=== PATIENT | female | born 1960 | race Hispanic/Latino ===

== ENCOUNTER 2023-01-19 19:59 | Emergency (ER) | payer OTHER ==
[~2023-01-19] VITALS: Ht 154.9 cm; Wt 71.2 kg
[2023-01-19] MEDS ORDERED: ASPIRIN 325 MG TAB PO ONE (20:30)
[2023-01-19] MEDS ORDERED: ACETAMINOPHEN 325 MG TAB PO ONE (20:30)
[2023-01-19 20:33] LABS: BASOPHILS % 0.4 % (0.0-1.0); EOSINOPHILS # (AUTO) 0.2 (0.0-0.4); HEMATOCRIT 37.3 % (34.2-44.1); HEMOGLOBIN 12.3 g/dL (12.0-16.0); LYMPHOCYTES % 38.5 % (18.0-39.1); MEAN CORPUSCULAR HEMOGLOBIN 30.4 pg (28-32); MEAN CORPUSCULAR VOLUME 92.3 fL (81-99); MONOCYTES # (AUTO) 0.4 (0.2-0.8); MONOCYTES % 6.7 % (4.4-11.3); NEUTROPHILS # (AUTO) 2.6 (2.1-6.9); NEUTROPHILS % 50.2 % (38.7-80.0); PLATELET COUNT 161 x10e3/uL (140-360); RED BLOOD COUNT 4.04 x10e6/uL (3.6-5.1); RED CELL DISTRIBUTION WIDTH 12.8 % (11.7-14.4)
[2023-01-19 20:38] LABS: INR 0.98; PARTIAL THROMBOPLASTIN TIME 34.3 seconds (23.8-35.5); PROTHROMBIN TIME 13.5 seconds (11.9-14.5)
[2023-01-19 20:45] LABS: CLARITY,URINE CLEAR (CLEAR); COLOR,URINE YELLOW (YELLOW); KETONES,URINE NEGATIVE (NEGATIVE); LEUKOCYTE ESTERASE ,URINE NEGATIVE (NEGATIVE); NITRITE,URINE NEGATIVE (NEGATIVE); PROTEIN,URINE DIPSTICK NEGATIVE (NEGATIVE)
[2023-01-19 20:45] LABS: ALBUMIN 3.9 g/dL (3.5-5.0); ALBUMIN/GLOBULIN RATIO 1.1 (0.8-2.0); ANION GAP 9.9 mmol/L (8-16); CALCIUM 8.6 mg/dL (8.4-10.2); CREATININE, SERUM 0.89 mg/dL (0.57-1.11); POTASSIUM 3.9 mmol/L (3.5-5.1)
[2023-01-19 20:46] LABS: URINE UROBILINOGEN 0.2 mg/dL (0.2 - 1)
[2023-01-19 21:06] LABS: BACTERIA,URINE FEW /HPF; EPITHELIAL CELLS,URINE FEW /LPF; WBC,URINE (MAN) 0-5 /HPF (0-5)
[2023-01-19] MEDS ORDERED: FLUCONAZOLE100 MG PO (21:46)
[2023-01-19] MEDS ORDERED: BENZONATATE100 MG PO (22:45)
[2023-01-19] MEDS ORDERED: FLONASE ALLERG9.9 ML INH (22:45)
[2023-01-19] MEDS ORDERED: MUCINEX DM ER1 EACH PO (22:45)
[2023-01-19] MEDS ORDERED: IBUPROFEN600 MG PO (22:45)
[2023-01-19 22:55] VITALS: BP 150/90; PULSE 61; RESP 20; TEMP 98.6; O2SAT 99
== END 2023-01-19 23:01 | disposition home or self-care (01) ==
LOC: ER 20:05
DX: R05.9 Cough, unspecified (principal); J40 Bronchitis, not specified as acute or chronic; J02.9 Acute pharyngitis, unspecified; B34.9 Viral infection, unspecified; R07.81 Pleurodynia; Z20.822 Contact with and (suspected) exposure to COVID-19
CPT/HCPCS: 36415; 71045; 80053; 81001; 83690; 84484; 85025; 85610; 85730; 93005; 99284; U0002

== ENCOUNTER 2023-01-31 11:23 | Inpatient (IN) | payer OTHER ==
[2023-01-31] VITALS (7 sets, daily range): BP systolic 122–143; BP diastolic 79–86; PULSE 63–88; RESP 16–22; TEMP 36.5–36.7; O2SAT 98–100
[~2023-01-31] VITALS: Ht 162.6 cm; Wt 70.3 kg
[~2023-01-31 11:23] MED LIST: BENZONATATE100 MG PO; FLONASE ALLERG9.9 ML INH; FLUCONAZOLE100 MG PO; IBUPROFEN600 MG PO; MUCINEX DM ER1 EACH PO
[2023-01-31 12:08] LABS: BASOPHILS % 0.6 % (0.0-1.0); EOSINOPHILS # (AUTO) 0.2 (0.0-0.4); EOSINOPHILS % 4.1 % (0.0-6.0); HEMATOCRIT 38.5 % (34.2-44.1); LYMPHOCYTES # (AUTO) 1.8 (1.0-3.2); LYMPHOCYTES % 37.1 % (18.0-39.1); MEAN CORPUSCULAR HEMOGLOBIN 30.8 pg (28-32); MEAN CORPUSCULAR HGB CONC 33.8 g/dL (31-35); MEAN CORPUSCULAR VOLUME 91.2 fL (81-99); MONOCYTES # (AUTO) 0.3 (0.2-0.8); MONOCYTES % 6.7 % (4.4-11.3); NEUTROPHILS # (AUTO) 2.5 (2.1-6.9); NEUTROPHILS % 51.3 % (38.7-80.0); PLATELET COUNT 179 x10e3/uL (140-360); RED BLOOD COUNT 4.22 x10e6/uL (3.6-5.1); RED CELL DISTRIBUTION WIDTH 12.7 % (11.7-14.4)
[2023-01-31 12:23] LABS: INR 1.04; PROTHROMBIN TIME 14.1 seconds (11.9-14.5)
[2023-01-31 12:24] LABS: PARTIAL THROMBOPLASTIN TIME 34.2 seconds (23.8-35.5)
[2023-01-31 12:35] LABS: ALANINE AMINOTRANSFERASE 15 IU/L (0-55); ALBUMIN 4.1 g/dL (3.5-5.0); ALBUMIN/GLOBULIN RATIO 1.1 (0.8-2.0); ALKALINE PHOSPHATASE 100 IU/L (40-150); ANION GAP 12.7 mmol/L (8-16); BLOOD UREA NITROGEN 12 mg/dL (7-26); BUN/CREATININE RATIO 13 (6-25); CALCIUM 8.8 mg/dL (8.4-10.2); CARBON DIOXIDE 21 mmol/L (22-29); CHLORIDE 114 mmol/L (98-107); CREATINE KINASE 60 IU/L (29-168); CREATININE, SERUM 0.95 mg/dL (0.57-1.11); GLUCOSE 90 mg/dL (74-118); POTASSIUM 3.7 mmol/L (3.5-5.1); SODIUM 144 mmol/L (136-145)
[2023-01-31] MEDS: SODIUM CHLORIDE 0.9% 1000ML 1,000 ML IV SCH ×2 (13:52→22:11)
[2023-01-31] MEDS: ONDANSETRON HCL INJ 2MG/ML 2ML 2 MG/ML VIAL IV PRN ×3 (14:08→22:20)
[2023-01-31] MEDS: ALBUTEROL/IPRATROPIUM 3 ML NEB NEB PRN (14:25)
[2023-01-31] MEDS ORDERED: ONDANSETRON HCL INJ 2MG/ML 2ML 2 MG/ML VIAL IV PRN (16:15)
[2023-01-31] MEDS: Morphine 2mg Syringe 2 MG/ML SYR IV PRN (16:18)
[2023-01-31 20:00] LABS: CREATINE KINASE 50 IU/L (29-168)
[2023-01-31] MEDS ORDERED: Morphine 4mg INJECTION 4 MG/ML INJ IV ONE (22:15)
[2023-01-31] MEDS: ACETAMINOPHEN 325 MG TAB PO PRN (22:20)
[2023-01-31] MEDS ORDERED: PREDNISONE20 MG PO (22:48)
[2023-01-31] MEDS ORDERED: IBUPROFEN200 MG PO (22:48)
[2023-01-31] MEDS ORDERED: TOPIRAMATE100 MG PO (22:48)
[2023-01-31] MEDS ORDERED: HYDROXYZINE HCL10 MG PO (22:48)
[2023-01-31] MEDS ORDERED: FAMOTIDINE20 MG PO (22:48)
[2023-01-31] MEDS ORDERED: TRAZODONE HCL100 MG PO (22:48)
[2023-01-31] MEDS ORDERED: NEURONTIN300 MG PO (22:48)
[2023-02-01] VITALS (11 sets, daily range): BP systolic 98–136; BP diastolic 64–75; PULSE 57–76; RESP 15–21; TEMP 97.5–98.3; O2SAT 97–100
[2023-02-01] MEDS: ALBUTEROL/IPRATROPIUM 3 ML NEB NEB PRN (05:02)
[2023-02-01] MEDS: SODIUM CHLORIDE 0.9% 1000ML 1,000 ML IV SCH ×2 (05:31→12:39)
[2023-02-01 07:35] LABS: ALBUMIN 3.1 g/dL (3.5-5.0); ALBUMIN/GLOBULIN RATIO 1.1 (0.8-2.0); ANION GAP 9.6 mmol/L (8-16); CALCIUM 7.6 mg/dL (8.4-10.2); CREATININE, SERUM 0.81 mg/dL (0.57-1.11); POTASSIUM 3.6 mmol/L (3.5-5.1)
[2023-02-01 07:44] LABS: BASOPHILS % 0.4 % (0.0-1.0); EOSINOPHILS # (AUTO) 0.2 (0.0-0.4); EOSINOPHILS % 3.6 % (0.0-6.0); HEMATOCRIT 34.4 % (34.2-44.1); HEMOGLOBIN 11.1 g/dL (12.0-16.0); LYMPHOCYTES # (AUTO) 2.3 (1.0-3.2); LYMPHOCYTES % 45.4 % (18.0-39.1); MEAN CORPUSCULAR HGB CONC 32.3 g/dL (31-35); MONOCYTES # (AUTO) 0.4 (0.2-0.8); MONOCYTES % 7.7 % (4.4-11.3); NEUTROPHILS # (AUTO) 2.1 (2.1-6.9); NEUTROPHILS % 42.5 % (38.7-80.0); PLATELET COUNT 143 x10e3/uL (140-360); RED CELL DISTRIBUTION WIDTH 12.8 % (11.7-14.4)
[2023-02-01 07:51] LABS: CREATINE KINASE 52 IU/L (29-168)
[2023-02-01] MEDS: Morphine 2mg Syringe 2 MG/ML SYR IV PRN ×2 (12:40→21:58)
[2023-02-01] MEDS: ONDANSETRON HCL INJ 2MG/ML 2ML 2 MG/ML VIAL IV PRN (14:21)
[2023-02-01 14:42] LABS: CREATINE KINASE 50 IU/L (29-168)
[2023-02-01] MEDS ORDERED: HYDRALAZINE HCL 20 MG/ML VIAL IV PRN (15:00)
[2023-02-01] MEDS: TOPIRAMATE 25 MG TAB PO SCH (17:44)
[2023-02-01] MEDS: GABAPENTIN 300 MG CAP PO SCH (17:44)
[2023-02-01] MEDS: ACETAMINOPHEN 325 MG TAB PO PRN (17:58)
[2023-02-01] MEDS ORDERED: FUROSEMIDE INJ 10 MG/ML 4 ML VIAL IV ONE (18:00)
[2023-02-01] MEDS ORDERED: IOPAMIDOL 370 MG/ML 100 ML INFUS..BTL INJ ONE (18:59)
[2023-02-01] MEDS: TRAZODONE HCL 50 MG TAB PO SCH (22:01)
[2023-02-02] VITALS (10 sets, daily range): BP systolic 126–145; BP diastolic 64–98; PULSE 62–92; RESP 16–20; TEMP 98.1–98.8; O2SAT 95–100
[2023-02-02 06:09] LABS: BASOPHILS % 0.4 % (0.0-1.0); EOSINOPHILS # (AUTO) 0.3 (0.0-0.4); EOSINOPHILS % 5.3 % (0.0-6.0); HEMATOCRIT 34.6 % (34.2-44.1); HEMOGLOBIN 11.2 g/dL (12.0-16.0); LYMPHOCYTES # (AUTO) 1.8 (1.0-3.2); MEAN CORPUSCULAR HEMOGLOBIN 30.4 pg (28-32); MEAN CORPUSCULAR HGB CONC 32.4 g/dL (31-35); MONOCYTES # (AUTO) 0.3 (0.2-0.8); NEUTROPHILS # (AUTO) 2.5 (2.1-6.9); NEUTROPHILS % 51.1 % (38.7-80.0); PLATELET COUNT 147 x10e3/uL (140-360); RED BLOOD COUNT 3.68 x10e6/uL (3.6-5.1); RED CELL DISTRIBUTION WIDTH 12.5 % (11.7-14.4)
[2023-02-02 06:35] LABS: CHOL/HDL RATIO 4.4 (3.0-3.6); MAGNESIUM 1.9 MG/DL (1.3-2.1); PHOSPHORUS 4.1 MG/DL (2.3-4.7)
[2023-02-02 06:37] LABS: ALBUMIN 3.3 g/dL (3.5-5.0); ALBUMIN/GLOBULIN RATIO 1.1 (0.8-2.0); ANION GAP 9.8 mmol/L (8-16); CALCIUM 8.3 mg/dL (8.4-10.2); CREATININE, SERUM 0.76 mg/dL (0.57-1.11); POTASSIUM 3.8 mmol/L (3.5-5.1)
[2023-02-02 06:45] LABS: THYROID STIMULATING HORMONE 3.878 uIU/mL (0.350-4.940)
[2023-02-02] MEDS: GABAPENTIN 300 MG CAP PO SCH ×2 (08:23→17:06)
[2023-02-02] MEDS: FAMOTIDINE 20 MG TAB PO SCH (08:23)
[2023-02-02] MEDS: Morphine 2mg Syringe 2 MG/ML SYR IV PRN ×2 (08:24→20:59)
[2023-02-02] MEDS: TOPIRAMATE 25 MG TAB PO SCH ×2 (08:24→17:07)
[2023-02-02] MEDS: BENZONATATE 100 MG CAP PO PRN (18:34)
[2023-02-02] MEDS: TRAZODONE HCL 50 MG TAB PO SCH (20:57)
[2023-02-03] VITALS (8 sets, daily range): BP systolic 110–135; BP diastolic 66–86; PULSE 68–85; RESP 16–18; TEMP 97.5–98.3; O2SAT 96–98
[2023-02-03] MEDS: FAMOTIDINE 20 MG TAB PO SCH (08:53)
[2023-02-03] MEDS: GABAPENTIN 300 MG CAP PO SCH ×2 (08:53→16:37)
[2023-02-03] MEDS: TOPIRAMATE 25 MG TAB PO SCH ×2 (08:53→16:37)
[2023-02-03] MEDS: Morphine 2mg Syringe 2 MG/ML SYR IV PRN (16:37)
[2023-02-03] MEDS: TRAZODONE HCL 50 MG TAB PO SCH (21:04)
[2023-02-03] MEDS ORDERED: GUAIFENESIN/DEXTROMETHORPHAN LIQD 5 ML UDC PO PRN (22:15)
[2023-02-04] VITALS (11 sets, daily range): BP systolic 92–121; BP diastolic 59–78; PULSE 66–81; RESP 16–22; TEMP 97.6–98.3; O2SAT 95–100
[2023-02-04] MEDS: Morphine 2mg Syringe 2 MG/ML SYR IV PRN ×2 (05:06→20:50)
[2023-02-04] MEDS: FAMOTIDINE 20 MG TAB PO SCH (08:42)
[2023-02-04] MEDS: GABAPENTIN 300 MG CAP PO SCH ×2 (08:42→17:19)
[2023-02-04] MEDS: TOPIRAMATE 25 MG TAB PO SCH ×2 (08:42→17:20)
[2023-02-04] MEDS ORDERED: METHYLPREDNISOLONE SOD SUCC 125 MG/2ML VIAL IV ONE ×2 (13:25→14:50)
[2023-02-04] MEDS: TRAZODONE HCL 50 MG TAB PO SCH (20:26)
[2023-02-04] MEDS: BENZONATATE 100 MG CAP PO PRN (20:50)
[2023-02-05] VITALS (10 sets, daily range): BP systolic 93–127; BP diastolic 62–95; PULSE 72–96; RESP 17–22; TEMP 97.6–97.9; O2SAT 96–100
[2023-02-05] MEDS: GABAPENTIN 300 MG CAP PO SCH ×2 (08:05→17:03)
[2023-02-05] MEDS: TOPIRAMATE 25 MG TAB PO SCH ×2 (08:05→17:03)
[2023-02-05] MEDS: FAMOTIDINE 20 MG TAB PO SCH (08:05)
[2023-02-05] MEDS ORDERED: ONDANSETRON HCL 4 MG ORAL DISINTEGRATING TAB PO PRN (13:45)
[2023-02-05] MEDS ORDERED: METHYLPREDNISOLONE SOD SUCC 40 MG/ML VIAL 1ML IV ONE (16:30)
[2023-02-05] MEDS ORDERED: DEXAMETHASONE SOD PHOS 10 MG/1 ML VIAL IV ONE (16:45)
[2023-02-05] MEDS: BUDESONIDE/FORMOTEROL 160/4.5MCG INHALER INH SCH (19:00)
[2023-02-05] MEDS ORDERED: MONTELUKAST SODIUM 10 MG TAB PO SCH (21:00)
[2023-02-05] MEDS: TRAZODONE HCL 50 MG TAB PO SCH (22:03)
[2023-02-05] MEDS: Morphine 2mg Syringe 2 MG/ML SYR IV PRN (22:04)
[2023-02-06 00:33] VITALS: BP 112/80; PULSE 87; RESP 17; TEMP 97.9; O2SAT 100
[2023-02-06 04:23] VITALS: BP 110/66; PULSE 78; RESP 18; TEMP 97.8; O2SAT 97
[2023-02-06 08:24] VITALS: PULSE 81; RESP 16; O2SAT 96
[2023-02-06] MEDS: BUDESONIDE/FORMOTEROL 160/4.5MCG INHALER INH SCH (08:26)
[2023-02-06 08:43] VITALS: BP 129/71; PULSE 72; RESP 19; TEMP 97.5; O2SAT 99
[2023-02-06] MEDS ORDERED: PREDNISONE 20 MG TAB PO SCH (09:00)
[2023-02-06] MEDS: TOPIRAMATE 25 MG TAB PO SCH (11:18)
[2023-02-06] MEDS: GABAPENTIN 300 MG CAP PO SCH (11:18)
[2023-02-06] MEDS: FAMOTIDINE 20 MG TAB PO SCH (11:19)
[2023-02-06 11:31] VITALS: BP 124/82; PULSE 70; RESP 18; TEMP 98.4; O2SAT 100
[2023-02-06 11:38] LABS: BASOPHILS % 0.1 % (0.0-1.0); HEMATOCRIT 35.5 % (34.2-44.1); HEMOGLOBIN 12.1 g/dL (12.0-16.0); LYMPHOCYTES # (AUTO) 1.6 (1.0-3.2); LYMPHOCYTES % 16.6 % (18.0-39.1); MEAN CORPUSCULAR HEMOGLOBIN 30.6 pg (28-32); MEAN CORPUSCULAR HGB CONC 34.1 g/dL (31-35); MEAN CORPUSCULAR VOLUME 89.6 fL (81-99); MONOCYTES # (AUTO) 0.7 (0.2-0.8); MONOCYTES % 7.2 % (4.4-11.3); NEUTROPHILS # (AUTO) 7.5 (2.1-6.9); NEUTROPHILS % 75.7 % (38.7-80.0); PLATELET COUNT 175 x10e3/uL (140-360); RED BLOOD COUNT 3.96 x10e6/uL (3.6-5.1); RED CELL DISTRIBUTION WIDTH 12.4 % (11.7-14.4)
[2023-02-06 11:58] LABS: ALBUMIN 3.8 g/dL (3.5-5.0); ALBUMIN/GLOBULIN RATIO 1.2 (0.8-2.0); ANION GAP 11.8 mmol/L (8-16); CALCIUM 8.9 mg/dL (8.4-10.2); CREATININE, SERUM 0.75 mg/dL (0.57-1.11); POTASSIUM 3.8 mmol/L (3.5-5.1)
[2023-02-06] MEDS: Morphine 2mg Syringe 2 MG/ML SYR IV PRN (12:00)
[2023-02-06] MEDS ORDERED: ONDANSETRON ODT4 MG PO (12:02)
[2023-02-06] MEDS ORDERED: BENZONATATE100 MG PO (12:02)
[2023-02-06] MEDS ORDERED: ACETAMINOPHEN325 M1 PO (12:02)
[2023-02-06] MEDS ORDERED: PREDNISONE20 MG PO (12:02)
[2023-02-06] MEDS ORDERED: SORBUTUSS LIQU474 ML PO (12:02)
[2023-02-06] MEDS ORDERED: SINGULAIR10 MG PO (12:02)
[2023-02-06] MEDS ORDERED: SYMBICORT 16010.2 GM INH (12:02)
== END 2023-02-06 16:45 | disposition home or self-care (01) | DRG 204 ==
LOC: ER 11:31 → ERHOLD 12:59 → MED/SURG2 19:47 → OBSVTOIN 02-02 11:21
PROVIDERS: ADMIT Internal Medicine; ATTEND Internal Medicine
PROC: 02HV33Z Insertion of Infusion Device into Superior Vena Cava, Percutaneous Approach (ICD-10-PCS; principal; 2023-02-01)
PROC: B548ZZA Ultrasonography of Superior Vena Cava, Guidance (ICD-10-PCS; 2023-02-01)
DX: R06.00 Dyspnea, unspecified (principal); I50.33 Acute on chronic diastolic (congestive) heart failure; I69.359 Hemiplegia and hemiparesis following cerebral infarction affecting unspecified side; I11.0 Hypertensive heart disease with heart failure; E11.42 Type 2 diabetes mellitus with diabetic polyneuropathy; D64.9 Anemia, unspecified; R07.89 Other chest pain; G43.909 Migraine, unspecified, not intractable, without status migrainosus; I69.311 Memory deficit following cerebral infarction; I69.328 Other speech and language deficits following cerebral infarction; J45.20 Mild intermittent asthma, uncomplicated; Z77.090 Contact with and (suspected) exposure to asbestos; Z86.19 Personal history of other infectious and parasitic diseases; Z90.49 Acquired absence of other specified parts of digestive tract; Z90.710 Acquired absence of both cervix and uterus; Z20.822 Contact with and (suspected) exposure to COVID-19; Z59.6 Low income
CPT/HCPCS: 0223U; 36415; 36569; 71045; 71046; 71260; 78580; 80053; 80061; 82550; 82553; 83036; 83735; 83880; 84100; 84443; 84484; 85025; 85379; 85610; 85730; 93005; 93306; 93880; 94640; 94664; 94799; 96361; 99284; A9540; G0378; J1100; J2270; J2405; J2930; J7030; J7512; Q9967

== ENCOUNTER → 2023-06-28 | Day surgery (SDC) | payer MEDICARE ==
[2023-06-26 12:53] LABS: BASOPHILS % 0.4 % (0.0-1.0); EOSINOPHILS # (AUTO) 0.1 (0.0-0.4); EOSINOPHILS % 1.9 % (0.0-6.0); HEMATOCRIT 36.2 % (34.2-44.1); HEMOGLOBIN 12.7 g/dL (12.0-16.0); LYMPHOCYTES # (AUTO) 1.9 (1.0-3.2); LYMPHOCYTES % 36.3 % (18.0-39.1); MEAN CORPUSCULAR HEMOGLOBIN 30.3 pg (28-32); MEAN CORPUSCULAR HGB CONC 35.1 g/dL (31-35); MEAN CORPUSCULAR VOLUME 86.4 fL (81-99); MONOCYTES # (AUTO) 0.4 (0.2-0.8); MONOCYTES % 6.7 % (4.4-11.3); NEUTROPHILS # (AUTO) 2.9 (2.1-6.9); NEUTROPHILS % 54.3 % (38.7-80.0); PLATELET COUNT 182 x10e3/uL (140-360); RED BLOOD COUNT 4.19 x10e6/uL (3.6-5.1); RED CELL DISTRIBUTION WIDTH 13.2 % (11.7-14.4); WHITE BLOOD COUNT 5.35 x10e3/uL (4.8-10.8)
[~2023-06-28] MED LIST changes: +ACETAMINOPHEN325 M1 PO; +CEFTRIAXONE 1 GM VIAL ONE; +DEXAMETHASONE SOD PHOS INJ 4 MG/ML SDV ONE; +DIPHENHYDRAMINE HCL 25 MG CAP ONE; +FAMOTIDINE20 MG PO; +FENTANYL CITRATE/PF 100MCG/2 ML INJ ONE; +HYDROXYZINE HCL10 MG PO; +IBUPROFEN200 MG PO; +IOPAMIDOL 610MG/1ML 300 MG/ML VIAL IV ONE; +LACTATED RINGER'S 1,000 ML ONE; +LIDOCAINE HCL 2% LOCAL INJ 5 ML SDV VIAL INJ ONE; +NEURONTIN300 MG PO; +ONDANSETRON HCL INJ 2MG/ML 2ML 2 MG/ML VIAL ONE; +ONDANSETRON ODT4 MG PO; +PREDNISONE20 MG PO; +PROPOFOL IV EMULSION 10 MG/ML 20 ML VIAL ONE; +SINGULAIR10 MG PO; +SORBUTUSS LIQU474 ML PO; +SYMBICORT 16010.2 GM INH; +TOPIRAMATE100 MG PO; +TRAZODONE HCL100 MG PO
[2023-06-28 08:00] VITALS: BP 110/71; PULSE 65; RESP 16; O2SAT 96
== END | disposition home or self-care (01) ==
LOC: OR 05:28
PROVIDERS: ATTEND Urology
DX: N13.30 Unspecified hydronephrosis (principal); N95.2 Postmenopausal atrophic vaginitis; N81.10 Cystocele, unspecified; N13.5 Crossing vessel and stricture of ureter without hydronephrosis; J45.909 Unspecified asthma, uncomplicated; Z01.810 Encounter for preprocedural cardiovascular examination; Z01.812 Encounter for preprocedural laboratory examination; Z01.818 Encounter for other preprocedural examination; I10 Essential (primary) hypertension; Z79.1 Long term (current) use of non-steroidal anti-inflammatories (NSAID); Z79.899 Other long term (current) drug therapy; Z86.73 Personal history of transient ischemic attack (TIA), and cerebral infarction without residual deficits
CPT/HCPCS: 36415; 52005; 71046; 74420; 85025; 93005; C1758; J0696; J1100; J2001; J2405; J2704; J3010; J7121; Q9967